=== PATIENT | female | born 1990 | race Caucasian/White ===

== ENCOUNTER → 2017-04-03 | Outpatient (CLI) | payer OTHER ==
--- NOTE | 2017-04-03 15:56 | DIAGNOSTIC IMAGING REPORT ---
SINUSES MIN 3 VIEWS ROUTINE CLINICAL HISTORY: ASTHMA, CHRONIC SINUSITIS COMPARISON STUDY: No previous studies for comparison. FINDINGS: There is a small right maxillary sinus air-fluid level. The paranasal sinuses are otherwise clear. IMPRESSION: Small right maxillary sinus air-fluid level. This could indicate acute sinusitis. Electronically signed by: Og Cobian M.D. 04/03/2017 3:55 PM Dictated Date/Time: 04/03/2017 3:53 PM
[2017-04-03 16:41] LABS: BASO % 0.5 %; BASO ABS # 0.05 K/uL (0-0.2); COMPLETE YES; EOS % 1.5 %; HEMATOCRIT 38.7 % (37-47); IG% 0.2 %; LYMPH % 24.4 %; LYMPH ABS # 2.65 K/uL (1.2-3.4); MEAN CELL VOLUME 90.2 fL (80-100); MEAN CORPUSCULAR HEMOGLOBIN 29.4 pg (25-34); MEAN CORPUSCULAR HGB CONC 32.6 g/dl (32-36); MEAN PLATELET VOLUME 9.5 fL (7.4-10.4); NEUT % 65.4 %; PLATELET COUNT 263 K/uL (130-400); RED BLOOD COUNT 4.29 M/uL (4.2-5.4); WHITE BLOOD COUNT 10.86 K/uL (4.8-10.8)
[2017-04-03 17:19] LABS: ALT/SGPT 45 U/L (12-78); BLOOD UREA NITROGEN 9 mg/dl (7-18); BUN/CREATININE RATIO 11.4 (10-20); CALCIUM 8.8 mg/dl (8.5-10.1); CARBON DIOXIDE 26 mmol/L (21-32); CHLORIDE 106 mmol/L (98-107); CREATININE 0.82 mg/dl (0.60-1.20); GLUCOSE 83 mg/dl (70-99); POTASSIUM 3.7 mmol/L (3.5-5.1); SODIUM 138 mmol/L (136-145)
[2017-04-03 17:22] LABS: ALB/GLOB RATIO 1.1 (0.9-2); ALKALINE PHOSPHATASE 71 U/L (45-117); AST/SGOT 19 U/L (15-37)
[2017-04-09 23:37] LABS: BORDETELLA PERTUSSIS PT IGA 11 IU/mL
== END | disposition home or self-care (01) ==
LOC: C.RAD1850 15:37
PROVIDERS: ATTEND Internal Medicine Pulmonary Disease
DX: J32.9 Chronic sinusitis, unspecified (principal); J45.909 Unspecified asthma, uncomplicated; R05 Cough; R06.2 Wheezing